=== PATIENT | female | born 1930 | race Caucasian/White ===

== ENCOUNTER 2016-08-23 15:23 | Inpatient (IN) | payer OTHER, MEDICARE, BC ==
[~2016-08-23] VITALS: Ht 162.6 cm; Wt 68.2 kg
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
--- NOTE | ~2016-08-23 | DS ---
PATIENT'S NAME: RODOLFO LUCAS [facility] AGE: 86 Y [address] ROOM: [address] [place] [address] LOCATION: GICU ADMIT DATE: 08/23/2016 Discharge Summary DISCHARGE DATE: 08/26/2016 FAMILY PHYSICIAN: Cesario East MD ATTENDING PHYSICIAN: Timi Domingo SUMMARY ADDENDUM: HOSPITAL COURSE: The patient was managed of her increasing intracranial pressures as well as at the time of presentation with hypovolemic hemorrhagic shock, was fluid resuscitated and eventually weaned off her Levophed. Over the course of her stay, the patient was found to be increasingly with loss of few of her brainstem reflexes with no cortical response. Family decided to proceed with making the patient more comfort care on 08/26/2016. After a long discussion with Neurosurgery as well as family, it was decided given the patient's grim prognosis and her comorbidities and that the patient's previous wishes would not to be chronically ventilated or with chronic severe disability, it was decided to make the patient comfort care. The patient did pass away following withdrawal of her ventilator and endotracheal tube as well as her medications. The patient's time of was 1402 hours on 08/26/2016. MD LUIS ANTONIO CASEY/jori /[id number] d: 09/25/162052 t: 10/18/16 1414, DISCHARGE SUMMARY
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
--- NOTE | ~2016-08-23 | OR ---
PATIENT'S NAME: RODOLFO LUCAS [facility] AGE: 86 Y [address] ROOM: [address] [place], [place] [address] LOCATION: GICU ADMIT DATE: 08/23/2016 OR/Procedure Report DISCHARGE DATE: FAMILY PHYSICIAN: DANILO SALAZAR MD ATTENDING PHYSICIAN: Edy Ellis SURGEON: Ximena Love MD COVERING MACHINE OPERATOR: DATE OF PROCEDURE: 08/23/2016 PREOPERATIVE DIAGNOSIS: Uwazc-ae-plxhokq subdural hematoma in the left hemisphere with significant fhoe-gh-iikxg shift. POSTOPERATIVE DIAGNOSIS: Mwhds-te-epmnabv subdural hematoma in the left hemisphere with significant ioqt-rg-iiszh shift. OPERATION PROPOSED AND PERFORMED: 1. Left frontotemporoparietal decompressive craniectomy. 2. Evacuation of acute subdural hematoma in the left frontotemporoparietal region. 3. Duraplasty. 4. Insertion of ICP monitor Right Frontal. 5. Suturing of the right parietal scalp laceration. DESCRIPTION OF PROCEDURE: Under general anesthesia, the patient was positioned supine, the head tilted to the right, the left frontotemporal- parietooccipital region was shaved, prepped, and draped in the usual fashion. Next, a large question magdalena incision was carried out extending from the frontal region all the way to the temporal area. The temporalis muscle and fascia as well as the pericranium were reflected as a unit with the scalp. Next, multiple jakub holes were then carried out in the frontotemporoparietal regions and a free frontotemporoparietal bone flap was fashioned out. The dura was stuck to the bone and consequently we had dural laceration in taking out the bone flap. Next, we incised the dura, and there was a large amount of acute subdural hematoma covering this entire area. In addition, there was some xanthochromic fluid indicating that it had some chronic subdural in addition to the acute subdural hematoma, but the major component was the acute subdural hematoma. We were able to get completely evacuate the subdural hematoma, extend it all the way to the floor of the anterior middle cranial fossa, and while doing the craniotomy, there was quite a copious bleeding along the midline, I think this was from the bone as well as from possibly 1 of the traversing veins we were able to stop the bleeding by applying pressure and Surgicel. Next, after evacuating the subdural hematoma, the brain was significantly decompressed; and next, we elected to go ahead and carry out a duraplasty. A few stay sutures were used to tack the dura to the undersurface of the bone primarily because we started having epidural bleeding after the PATIENT'S NAME: RODOLFO LUCAS [facility] AGE: 86 Y [address] ROOM: [address] [address] LOCATION: [facility] ADMIT DATE: 08/23/2016 OR/Procedure Report DISCHARGE DATE: FAMILY PHYSICIAN: DANILO SALAZAR MD ATTENDING PHYSICIAN: Edy Ellis decompression had been carried out. When hemostasis was completely achieved and there was no further hemorrhage seen, we therefore went ahead and closed the scalp in a single layer using mattress sutures. We did not close the temporalis muscle and fascia. Once this was completed, we completely removed the draping and directed our attention to the right frontal region in order to put in an ICP monitor. The initial intention was to put in a ventricular catheter; so, consequently a linear incision was carried out just anterior to the coronal suture and a twist drill hole was carried out at this site. The dura was incised in a cruciate manner after cauterizing it; and first of all, we tried using a bolt and using the bolt we could not convincingly get the catheter into the lateral ventricle. We then made another attempt using the Codman ventricular catheter and this attempt also was futile in accurately locating the lateral ventricle. So, eventually, we elected to just go ahead and put in a fiberoptic ICP monitor and the intracranial pressure was reading between 11 and 12. The area of the decompressive craniectomy was concave. After we had inserted the ICP sensor, which we brought out through a separate stab wound, the right frontal incision was closed in a single layer using 3-0 Nurolon. The patient was subsequently taken to the Intensive Care Unit continuing the ventilation. MD LEAH MARKHAM/jori /[id number] d: 08/24/16 0144 t: 08/28/16 1627, OPERATIVE SUMMARY
--- NOTE | ~2016-08-23 | OR ---
PATIENT'S NAME: RODOLFO LUCAS [facility] AGE: 86 Y [address] ROOM: [place] [address] LOCATION: [facility] ADMIT DATE: 08/23/2016 OR/Procedure Report DISCHARGE DATE: FAMILY PHYSICIAN: DANILO SALAZAR MD ATTENDING PHYSICIAN: Edy Ellis SURGEON: Ximena Love MD FARM INSTRUCTOR: DATE OF PROCEDURE: 08/23/2016 PREOPERATIVE DIAGNOSIS: Right parietal laceration. POSTOPERATIVE DIAGNOSIS: Right parietal laceration. OPERATION PROPOSED AND PERFORMED: Suturing of the right parietal laceration. DESCRIPTION OF PROCEDURE: The patient's right parietal region was cleaned, was prepped, and we went ahead after cleaning the area to initially tried using renetta, but this was not good enough; so, we subsequently changed that to using 3-0 Nurolon. The laceration was about 1 inch long. This was carried out uneventfully. MD LEAH MARKHAM/modl /[id number] d: 08/24/16 0149 t: 08/28/16 1629, OPERATIVE SUMMARY
--- NOTE | ~2016-08-23 | OR ---
PATIENT'S NAME: RODOLFO LUCAS [facility] AGE: 86 Y [address] ROOM: [place] [address] LOCATION: GICU ADMIT DATE: 08/23/2016 OR/Procedure Report DISCHARGE DATE: FAMILY PHYSICIAN: DANILO SALAZAR MD ATTENDING PHYSICIAN: Edy Ellis SURGEON: Brian Urbina MD ROVER TENDER: Joaquim Capellan RN. DATE OF PROCEDURE: 08/23/2016 PROCEDURE: Right internal jugular 8.5 Pakistani quad lumen central line placement. INDICATION FOR PROCEDURE: Need for central venous access secondary to administration of fluid, blood products, central venous pressure monitoring, and definitive central venous access. PREOPERATIVE DIAGNOSES: 1. Traumatic brain injury. 2. Polytrauma. 3. History of chronic obstructive pulmonary disease on home O2 use. 4. Chronic prednisone use. POSTOPERATIVE DIAGNOSES: 1. Traumatic brain injury. 2. Polytrauma. 3. History of chronic obstructive pulmonary disease on home O2 use. 4. Chronic prednisone use. COMPLICATIONS: None noted. ESTIMATED BLOOD LOSS: Less than 5 mL. CONSENT: I proceeded under presumed consent with the urgent nature of the patient's need for left craniotomy with evacuation of subdural hematoma. DESCRIPTION OF PROCEDURE: Following the left craniectomy with evacuation of subdural hematoma, the patient placed in supine position. Right neck was prepped with both alcohol and ChloraPrep. Utilizing sterile technique, a full body drape, sterile gown, sterile gloves were used. Surgical mask and cap were worn at all times. Utilizing sterile real-time ultrasound guidance, a 16- gauge needle was used to cannulate the right internal jugular vein in a middle approach on the first attempt without difficulty. Nonpulsatile blood flow. Dark blood aspirated over wire. An 8.6 Pakistani quad lumen was placed to 16 cm without difficulty. Wire and needle were removed intact. Catheter sutured in place. Sterile occlusive Tegaderm dressing applied. Good central venous PATIENT'S NAME: RODOLFO LUCAS [facility] AGE: 86 Y [address] ROOM: [place] [address] LOCATION: GICU ADMIT DATE: 08/23/2016 OR/Procedure Report DISCHARGE DATE: FAMILY PHYSICIAN: DANILO SALAZAR MD ATTENDING PHYSICIAN: Edy Ellis pressure monitoring waveform noted. Stat portable chest x-ray will be ordered postoperatively. MD BRUCE FR[place]/wisaml /[id number] d: 08/24/16 0152 t: 08/27/16 1320, OPERATIVE SUMMARY
--- NOTE | ~2016-08-23 | OR ---
PATIENT'S NAME: RODOLFO LUCAS [facility] AGE: 86 Y [address] ROOM: [place] [id number] LOCATION: [facility] ADMIT DATE: 08/23/2016 OR/Procedure Report DISCHARGE DATE: FAMILY PHYSICIAN: DANILO SALAZAR MD ATTENDING PHYSICIAN: Edy Ellis SURGEON: Philip Urbina MD [employer] CONSULTANT: Joaquim Capellan RN. DATE OF PROCEDURE: 08/23/2016 PROCEDURE: Emergent endotracheal intubation. INDICATIONS FOR PROCEDURE: Acute respiratory failure secondary to neurologic injury with bag-mask ventilation following the patient's injury. PRE PROCEDURE DIAGNOSES: 1. Polytrauma. 2. Acute respiratory failure. POSTOPERATIVE DIAGNOSES: 1. Polytrauma. 2. Acute respiratory failure. COMPLICATIONS: None noted. CONSENT: Proceeded under presumed consent given the urgent nature of the patient's condition. DETAILS OF THE PROCEDURE: The patient in the ER [facility] [place]. Bag-mask ventilation with 100% FiO2. The patient was somewhat difficult to mask ventilate. Bloody secretions through the patient's mouth noted. Oxygen saturations were at times obtainable of 100%. The patient was not moving or responsive at the time of my evaluation. 16 mg of etomidate was administered intravenously followed by of 80 mg of succinylcholine IV was administered. Utilizing Sellick maneuver throughout whole intubation and direct laryngoscopy with a Sanders 3 blade, the posterior oropharynx was suctioned aggressively with the Yankauer. A grade 1 Cormack-Lehane visualization was noted of the glottis. 7.5 oral endotracheal tube was placed without difficulty into the trachea at a depth of 22 cm at the lip. Balloon was inflated and bagged to oral endotracheal tube, was achieved with bilateral breath sounds and positive end- tidal CO2. At no point did I recognize any active regurgitation or passive aspiration except for the initial bloody secretions noted in the posterior oropharynx at the glottis that were aggressively suctioned. We had to aggressively suction the oral endotracheal tube because of bloody secretions. The patient's oxygen saturation were 100% post intubation. PATIENT'S NAME: RODOLFO LUCAS [facility] AGE: 86 Y [address] ROOM: [place] [address] LOCATION: [facility] ADMIT DATE: 08/23/2016 OR/Procedure Report DISCHARGE DATE: FAMILY PHYSICIAN: DANILO SALAZAR MD ATTENDING PHYSICIAN: dEy Ellis Of note, critical care time did not include the patient's emergency intubation. PHILIP URBINA MD RRS/modl /[id number] d: 08/24/16 0123 t: 08/27/16 1317, OPERATIVE SUMMARY
[~2016-08-23 15:23] MED LIST changes: -ATROVENT I0.5 MG/2.5 INH; -PROTONIX40 MG PO
[2016-08-23 15:44] LABS: BASOPHIL # 0.1 K/uL (0.0-0.2); BASOPHIL % 0.8 %; EOSINOPHIL # 0.3 K/uL (0.0-0.5); HEMATOCRIT 32.1 % (30.0-46.0); HEMOGLOBIN 10.4 g/dL (10.0-15.0); IMMATURE GRANULOCYTE # 0.1 K/uL (0.0-0.3); IMMATURE GRANULOCYTE % 0.7 %; LYMPHOCYTE # 3.2 K/uL (0.8-4.0); LYMPHOCYTE % 28.1 %; MCH 29.8 pg (27.0-34.0); MCHC 32.4 gm/dL (32.0-36.5); MONOCYTE # 0.6 K/uL (0.0-1.0); MONOCYTE % 5.4 %; MPV 9.2 fl (9.4-12.4); NRBC % 0 /100WBC (0-0.00); RBC 3.49 M/uL (3.00-5.00); RDW-CV 14.5 % (11.9-14.6); WBC 11.2 K/uL (4.0-11.0)
[2016-08-23 15:45] LABS: PLATELET COUNT 234 K/uL (150-450)
[2016-08-23 15:46] LABS: BILIRUBIN URINE NEGATIVE (NEGATIVE); BLOOD URINE 25 /UL (NEGATIVE); GLUCOSE URINE NEGATIVE (NEGATIVE); KETONE URINE NEGATIVE (NEGATIVE); LEUKOCYTES URINE NEGATIVE /UL (NEGATIVE); NITRITE URINE NEGATIVE (NEGATIVE); PROTEIN URINE 30 mg/dL (NEGATIVE); UROBILINOGEN URINE NORMAL (NORMAL)
[2016-08-23 15:52] LABS: PCO2 54 mmHg (35-45)
[2016-08-23 15:53] LABS: PO2 25 mmHg (80-90); POTASSIUM 4.5 mEq/L (3.7-5.1); PROTIME 10.2 SECONDS (9.6-11.1); SODIUM 140 mEq/L (135-145)
[2016-08-23 15:56] LABS: PTT 25 SECONDS (25-32)
[2016-08-23 16:00] LABS: ANION GAP 10.5 (10.0-19.0); BLOOD UREA NITROGEN 14 mg/dL (6-24); CHLORIDE 106 mMol/L (96-110); ESTIMATED GFR (MDRD EQUATION) 52
[2016-08-23 16:15] LABS: COLOR URINE YELLOW (YELLOW); TURBIDITY URINE CLEAR (CLEAR)
[2016-08-23 16:16] LABS: RBC URINE 0-2 #/HPF (NEGATIVE)
[2016-08-23 16:17] LABS: BACTERIA URINE NEGATIVE (NEGATIVE); EPITHELIAL URINE 0-2 #/HPF (NEGATIVE); WBC URINE 0-2 #/HPF (NEGATIVE)
[2016-08-23 18:34] LABS: BASOPHIL % 0.2 %; EOSINOPHIL # 0.1 K/uL (0.0-0.5); EOSINOPHIL % 0.8 %; HEMOGLOBIN 8.3 g/dL (10.0-15.0); IMMATURE GRANULOCYTE # 0.1 K/uL (0.0-0.3); IMMATURE GRANULOCYTE % 0.9 %; LYMPHOCYTE # 1.4 K/uL (0.8-4.0); LYMPHOCYTE % 11.6 %; MCH 30.9 pg (27.0-34.0); MCV 91.4 fl (83.0-98.0); MONOCYTE # 0.7 K/uL (0.0-1.0); MONOCYTE % 6.1 %; MPV 8.7 fl (9.4-12.4); NEUTROPHIL # (ANC) 9.7 K/uL (1.8-7.8); NEUTROPHIL % 80.4 %; NRBC % 0 /100WBC (0-0.00); RBC 2.69 M/uL (3.00-5.00)
[2016-08-23 18:35] LABS: HEMATOCRIT 24.6 % (30.0-46.0); MCHC 33.7 gm/dL (32.0-36.5); PLATELET COUNT 132 K/uL (150-450)
[2016-08-23 18:45] LABS: INR - (THERAPEUTIC) 1.2 (0.9-1.1); PROTIME 12.9 SECONDS (9.6-11.1); PTT 35 SECONDS (25-32)
[2016-08-23 20:30] LABS: BICARBONATE 22.6 mmol/L (18.0-23.0); PCO2 41 mmHg (35-45); PO2 407 mmHg (80-90)
[2016-08-23 20:31] LABS: SODIUM 136 mEq/L (135-145)
[2016-08-23 20:31] LABS: BICARBONATE 21.1 mmol/L (18.0-23.0); PCO2 46 mmHg (35-45); PO2 407 mmHg (80-90); SODIUM 140 mEq/L (135-145)
[2016-08-23 20:58] LABS: PCO2 44 mmHg (35-45)
[2016-08-23 20:58] LABS: HEMATOCRIT 30.7 % (30.0-46.0); HEMOGLOBIN 10.8 g/dL (10.0-15.0); MCH 31.7 pg (27.0-34.0); MCHC 35.2 gm/dL (32.0-36.5); MPV 8.7 fl (9.4-12.4); PLATELET COUNT 99 K/uL (150-450); RBC 3.41 M/uL (3.00-5.00); WBC 8.3 K/uL (4.0-11.0)
[2016-08-23 20:59] LABS: PO2 206 mmHg (80-90)
[2016-08-23 21:11] LABS: ANION GAP 15.9 (10.0-19.0); CALCIUM 8.1 mg/dL (8.5-10.5); POTASSIUM 3.9 mMol/L (3.7-5.1)
[2016-08-23 21:15] LABS: PROTIME 10.5 SECONDS (9.6-11.1)
[2016-08-23 21:19] LABS: PTT 25 SECONDS (25-32)
[2016-08-23 21:27] LABS: ABSOLUTE NEUTROPHIL CT (ANC) 6.7 K/uL (1.8-7.8); BANDED NEUTROPHIL # 0.2 K/uL (0.0-0.1); BANDED NEUTROPHILS % 2 %; LYMPHOCYTE # 0.7 K/uL (0.8-4.0); LYMPHOCYTE % 8 %; MONOCYTE # 0.9 K/uL (0.0-1.0); SEGMENTED NEUTROPHIL # 6.6 K/uL (1.8-7.8); SEGMENTED NEUTROPHIL % 79 %
[2016-08-24 04:00] LABS: BICARBONATE 25.1 mmol/L (18.0-23.0); LACTATE 2.5 mEq/L (0.50-1.60); PCO2 37 mmHg (35-45)
[2016-08-24 04:01] LABS: PO2 83 mmHg (80-90)
[2016-08-24 04:22] LABS: ALBUMIN 3.2 gm/dL (3.5-5.0); CALCIUM 7.9 mg/dL (8.5-10.5); CREATININE 1.1 mg/dL (0.5-1.1); POTASSIUM 3.4 mMol/L (3.7-5.1); TOTAL PROTEIN 5.6 g/dL (6.0-8.4)
[2016-08-24 04:35] LABS: ANION GAP 15.4 (10.0-19.0); TOTAL BILIRUBIN 2.3 mg/dL (0.0-1.5)
[2016-08-24 05:13] LABS: HEMATOCRIT 29.1 % (30.0-46.0); HEMOGLOBIN 10.4 g/dL (10.0-15.0); MCH 30.7 pg (27.0-34.0); MCHC 35.7 gm/dL (32.0-36.5); MCV 85.8 fl (83.0-98.0); MPV 9.2 fl (9.4-12.4); PLATELET COUNT 96 K/uL (150-450); RBC 3.39 M/uL (3.00-5.00); RDW-CV 13.6 % (11.9-14.6); WBC 6.7 K/uL (4.0-11.0)
[2016-08-24 05:15] LABS: PROTIME 9.9 SECONDS (9.6-11.1)
[2016-08-24 06:05] LABS: BANDED NEUTROPHIL # 2.2 K/uL (0.0-0.1); BANDED NEUTROPHILS % 33 %; LYMPHOCYTE # 1.1 K/uL (0.8-4.0); LYMPHOCYTE % 17 %; MONOCYTE # 0.6 K/uL (0.0-1.0); SEGMENTED NEUTROPHIL # 2.8 K/uL (1.8-7.8); SEGMENTED NEUTROPHIL % 41 %
--- NOTE | 2016-08-24 06:45 | NUR ---
Significant Event: Patient sedated on propofol. Pupils equal and reactive. Shrugs shoulders with noxious stimulation to UEs. LEs decorticate posturing with noxious stimulation. ICP 10-12. SR, ST, BP labile, labetolol given x2 to keep CPP 60-80. SIMV, 30%fio2. Lung sounds clear and clear and diminished in the lowers. Bowel sounds active/hypoactive, OG to lis, no bm this shift. Stoner intact, adquate UOP. Skin abnormalities noted, R)eye continues to ooze bloody drainage. R)IJ, R)arterial line intact. Propofol and NS with 20KCL infusing. Follow up: Continue.
[2016-08-24] MEDS ORDERED: PROTONIX40 MG PO (09:21)
[2016-08-24] MEDS ORDERED: ATROVENT I0.5 MG/2.5 INH (09:22)
--- NOTE | 2016-08-24 13:00 | NUR ---
Introduced self and role of care management to patient's daughter and son. Patient lives in [place] with her spouse. Support offered. Will follow.
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
[2016-08-24 16:33] LABS: BICARBONATE 24.8 mmol/L (18.0-23.0); PCO2 42 mmHg (35-45); PO2 86 mmHg (80-90)
[2016-08-24 16:50] LABS: ALBUMIN 3.1 gm/dL (3.5-5.0); CALCIUM 8.1 mg/dL (8.5-10.5); PHOSPHORUS 2.6 mg/dL (2.5-4.9); POTASSIUM 3.5 mMol/L (3.7-5.1)
[2016-08-24 16:51] LABS: ANION GAP 15.5 (10.0-19.0)
--- NOTE | 2016-08-24 17:04 | NUR ---
No changes to vent settings t/o shift, continued on 30% Fio2, Peep 5, PS 10 in SIMV mode. Lung sounds clear/diminished, sxn scant-small occ blood-tinged/white. Started Atrovent Q6H this afternoon. Will continue to monitor
--- NOTE | 2016-08-24 19:09 | NUR ---
Significant Event: Patient is on a fentanyl gtt at 50mcg/hr per physician order. PERRLA at 4mmg bilaterally/brisk. Extension observed with bilateral upper extremities, does withdraw to lower extremities. Does have a gag, does have a cough and overbreathes set rate on ventilator. High temp of 100.6, cooling blanket was placed and has came down to normothermia range throughout the day. CPP was matained with the help of medication. Currently most recently being treated on levophed gtt at 0.1mcg/kg/min. Potassium was low throughout the shift, replaced with 40meq KCL this AM, and 40mmol of Kphos this afternoon. [employer] fit patient with special aspen collar after having to manipulate it several times and shred it down to fit her neck. Currently aspen collar is on. ICP monitor has showed a reading of <15 all day. MARSHAL drain under scalp on L) side has drained 40ml of fluid. Stoner draining mariginal UOP the last 2 hours of 30ml/hr. Total fluid order of 100ml/hr. Follow up:
[2016-08-25 04:44] LABS: BICARBONATE 23.2 mmol/L (18.0-23.0); PCO2 43 mmHg (35-45); PO2 81 mmHg (80-90)
--- NOTE | 2016-08-25 04:47 | NUR ---
No changes made to vent settings this shift. FiO2 currently at 30% for O2 sats of 98-99%. ETCO2 was 37-42 throughout the shift. Breathsounds slightly coarse throughout bilaterally. Suctioning scant to small amounts of blood tinged secretions. Will continue to monitor patient.
[2016-08-25 05:09] LABS: CALCIUM 7.8 mg/dL (8.5-10.5); CREATININE 1.1 mg/dL (0.5-1.1); POTASSIUM 4.2 mMol/L (3.7-5.1); TOTAL PROTEIN 5.7 g/dL (6.0-8.4)
[2016-08-25 05:13] LABS: BASOPHIL % 0.1 %; HEMATOCRIT 28.8 % (30.0-46.0); HEMOGLOBIN 9.9 g/dL (10.0-15.0); IMMATURE GRANULOCYTE # 0.1 K/uL (0.0-0.3); IMMATURE GRANULOCYTE % 0.9 %; LYMPHOCYTE # 1.1 K/uL (0.8-4.0); LYMPHOCYTE % 9.1 %; MCHC 34.4 gm/dL (32.0-36.5); MONOCYTE # 1.1 K/uL (0.0-1.0); MONOCYTE % 9.6 %; NEUTROPHIL # (ANC) 9.6 K/uL (1.8-7.8); NEUTROPHIL % 80.3 %; NRBC % 0 /100WBC (0-0.00); PLATELET COUNT 86 K/uL (150-450); RBC 3.19 M/uL (3.00-5.00); WBC 11.9 K/uL (4.0-11.0)
[2016-08-25 05:17] LABS: MCV 90.3 fl (83.0-98.0)
[2016-08-25 05:18] LABS: INR - (THERAPEUTIC) 0.9 (0.9-1.1); PROTIME 9.4 SECONDS (9.6-11.1)
[2016-08-25 05:21] LABS: ANION GAP 15.2 (10.0-19.0); TOTAL BILIRUBIN 0.6 mg/dL (0.0-1.5)
--- NOTE | 2016-08-25 05:44 | NUR ---
Significant Event: CONTINUES WITHOUT SEDATION, FENTANYL GTT AT 50MCG/HR. ICP MONITOR TO RIGHT FRONTAL. LEFT BONE FLAP. ICP'S 8-11 THROUGHOUT SHIFT. WITHDRAW IN LOWER EXTREMITIES TO NAIL BED PRESSURE. SLIGHT WITHDRAW NOTED TO UPPER EXTREMETIES WITH DEEP NAIL BED PRESSURE. SPONTANEOUS AND INDUCED COUGH. WEANED FROM LEVOPHED GTT TO KEEP CPP 60-80. CONTINUES ON COOLING BLANKET. TEMP MAX 99.7. HICKS WITH MARGINAL OUTPUT. OGT WITH TF, INCREASING TO GOAL 50ML/HR, CURRENTLY AT 40ML/HR. PIV X2,SL. RIGHT IJ QUAD LUMEN, CVP. RIGHT RADIAL ARTLINE. Follow up:
[2016-08-25 16:48] LABS: BLOOD UREA NITROGEN 20 mg/dL (6-24); CALCIUM 7.9 mg/dL (8.5-10.5); CO2 23 mMol/L (22-32); CREATININE 0.8 mg/dL (0.5-1.1)
[2016-08-25 16:49] LABS: POTASSIUM 4.4 mMol/L (3.7-5.1); SODIUM 155 mMol/L (135-145)
[2016-08-25 16:50] LABS: ANION GAP 14.4 (10.0-19.0); CHLORIDE 122 mMol/L (96-110); ESTIMATED GFR (MDRD EQUATION) > 60
--- NOTE | 2016-08-25 17:05 | NUR ---
PT VENTED ON 30% SATS 98-100%, BREATH SOUNDS COARSE THROUGHOUT, SXN A MODERATE AMOUNT OF WHITE AND RODRIGUES SPUTUM, ETCO2 36-40, PT CONTINUED TO STACK BREATHS ON VENT, WAS CALLED AND WE PLACED PT IN CPAP 10/03 AROUND 1630, PT SEEMS TO TOLERATE THAT WELL AND LOOKS MORE COMFORTABLE, WILL CONTINUE TO MONITOR UNTIL FURTHER NOTICE
--- NOTE | 2016-08-25 17:21 | NUR ---
PT HAS SPONT COUGH/GAG PRESENT, ABDN FLEX TO BLE AND ABDN EXT TO BUE. NO COREAL REFLEX, PERRL 2B, CURRENTLY IN CPAP TV 800'S AT TIMES, RR TEEN'S-20'S. LS SLC AND CLEAR WITH SUCTIONING RODRIGUES VIA ETT AND ORALLY. SATS UPPER 90'S, ST 120'S THIS AFTERNOON, LABS STABLE, CVP 8-15, CPP'S 90-100'S THIS AFTERNOON, T-MAX 99.9 WITH COOLING BLANKET PLACED NOW DOWN TO 97'S. FENT GTT DC'D WITH OXY STARTED PER OGT, TF WITH NO RESIDUALS, HICKS WITH MARGINAL UOP. FAMILY DISCUSSED POC IN LENGTH, POSSIBLE W/DRAW TOMORROW. J/P DRAIN WITH 120MLS FOR SHIFT.
[2016-08-26 04:58] LABS: BICARBONATE 26.5 mmol/L (18.0-23.0); LACTATE 2.1 mEq/L (0.50-1.60)
[2016-08-26 04:59] LABS: PCO2 34 mmHg (35-45); PO2 102 mmHg (80-90)
[2016-08-26 05:16] LABS: MAGNESIUM 1.8 mg/dL (1.3-2.6); PHOSPHORUS 1.3 mg/dL (2.5-4.9)
[2016-08-26 05:17] LABS: BASOPHIL % 0.2 %; HEMATOCRIT 25.1 % (30.0-46.0); HEMOGLOBIN 8.6 g/dL (10.0-15.0); IMMATURE GRANULOCYTE # 0.1 K/uL (0.0-0.3); IMMATURE GRANULOCYTE % 0.7 %; LYMPHOCYTE # 1.3 K/uL (0.8-4.0); MCH 31.4 pg (27.0-34.0); MCHC 34.3 gm/dL (32.0-36.5); MCV 91.6 fl (83.0-98.0); MONOCYTE % 8.7 %; MPV 10.6 fl (9.4-12.4); NEUTROPHIL % 79.4 %; NRBC % 0.2 /100WBC (0-0.00); PLATELET COUNT 82 K/uL (150-450); RBC 2.74 M/uL (3.00-5.00); RDW-CV 15.4 % (11.9-14.6); WBC 11.3 K/uL (4.0-11.0)
--- NOTE | 2016-08-26 07:06 | NUR ---
Significant Event: No significant changes. Pt continues to have abnormal flexion and extension x 4 extremities. Very rigid. Does not open eyes. No corneal reflex. PERRL. Sinus tachycardia. Htn at times. Labetalol given x1. Febrile at times. COoling blanket on/off. Tube feeds via OG, no residuals. Adequate uop. R)IJ intact. R)arterial line. Follow up: Continue cares.
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
== END 2016-08-26 14:02 | disposition expired | DRG 955 ==
LOC: GACC 15:23 → GICU 16:09 → GNTU 16:09 → GICU 17:54
PROVIDERS: Anesthesiology; Anesthesiology Critical Care Medicine; Family Medicine; Neurological Surgery; ADMIT Surgery
PROC: 02HV33Z Insertion of Infusion Device into Superior Vena Cava, Percutaneous Approach (ICD-10-PCS; principal; 2016-08-23)
PROC: 0WQ0XZZ Repair Head, External Approach (ICD-10-PCS; principal; 2016-08-23)
PROC: 00N00ZZ Release Brain, Open Approach (ICD-10-PCS; principal; 2016-08-23)
PROC: 03HB33Z Insertion of Infusion Device into Right Radial Artery, Percutaneous Approach (ICD-10-PCS; principal; 2016-08-23)
PROC: 00940ZZ Drainage of Intracranial Subdural Space, Open Approach (ICD-10-PCS; principal; 2016-08-23)
PROC: 00Q20ZZ Repair Dura Mater, Open Approach (ICD-10-PCS; principal; 2016-08-23)
PROC: 4A103BD Monitoring of Intracranial Pressure, Percutaneous Approach (ICD-10-PCS; principal; 2016-08-23)
PROC: 5A1945Z Respiratory Ventilation, 24-96 Consecutive Hours (ICD-10-PCS; 2016-08-23)
PROC: 0BH17EZ Insertion of Endotracheal Airway into Trachea, Via Natural or Artificial Opening (ICD-10-PCS; 2016-08-23)
PROC: 30233M1 Transfusion of Nonautologous Plasma Cryoprecipitate into Peripheral Vein, Percutaneous Approach (ICD-10-PCS; 2016-08-23)
PROC: 30233K1 Transfusion of Nonautologous Frozen Plasma into Peripheral Vein, Percutaneous Approach (ICD-10-PCS; 2016-08-23)
PROC: 30233N1 Transfusion of Nonautologous Red Blood Cells into Peripheral Vein, Percutaneous Approach (ICD-10-PCS; 2016-08-23)
PROC: 30233R1 Transfusion of Nonautologous Platelets into Peripheral Vein, Percutaneous Approach (ICD-10-PCS; 2016-08-23)
DX: S32.501A Unspecified fracture of right pubis, initial encounter for closed fracture; J96.00 Acute respiratory failure, unspecified whether with hypoxia or hypercapnia; G93.6 Cerebral edema; T79.4XXA Traumatic shock, initial encounter; D68.9 Coagulation defect, unspecified; E87.2 Acidosis; D62 Acute posthemorrhagic anemia; Z51.5 Encounter for palliative care; S02.40EA Zygomatic fracture, right side, initial encounter for closed fracture; Z99.81 Dependence on supplemental oxygen; S02.81XA Fracture of other specified skull and facial bones, right side, initial encounter for closed fracture; S05.11XA Contusion of eyeball and orbital tissues, right eye, initial encounter; V03.00XA Pedestrian on foot injured in collision with car, pick-up truck or van in nontraffic accident, initial encounter; J44.9 Chronic obstructive pulmonary disease, unspecified; I10 Essential (primary) hypertension; Z79.52 Long term (current) use of systemic steroids; Z87.891 Personal history of nicotine dependence; M43.16 Spondylolisthesis, lumbar region; M51.37 Other intervertebral disc degeneration, lumbosacral region; Z87.81 Personal history of (healed) traumatic fracture; S01.01XA Laceration without foreign body of scalp, initial encounter; H11.31 Conjunctival hemorrhage, right eye; D69.59 Other secondary thrombocytopenia; G93.2 Benign intracranial hypertension; R73.9 Hyperglycemia, unspecified
CPT/HCPCS: G0390; G0480; J0330; J1165; J1720; J2060; J2250; J2270; J2370; J2405; J2704; J2765; J2920; J3010; J3480; J7040; J7050; J7060; P9012; P9016; P9017; P9035; Q9967

== ENCOUNTER → 2016-08-23 | Outpatient (CLI) | payer OTHER, MEDICARE, BC ==
[~2016-08-23] MED LIST: ADVAIR 250-501 EACH INH; ATROVENT I0.5 MG/2.5 INH; DELTASONE1 MG PO; DELTASONE20 MG PO; HUMIBID LA (MU600 MG PO; HYDRODIURIL25 MG PO; ICAPS TABLET1 EACH PO; K-TAB 10MEQ10 MEQ PO; OXYGEN M-15 INH; PENTASA500 MG PO; PROTONIX20 MG PO; PROTONIX40 MG PO; ROBITUSSIN100 MG/5 M PO; TAMIFLU75 MG PO; THERA-VITE W/ B1 TAB PO; TYLENOL325 MG PO; ZITHROMAX250 MG PO; ZOCOR20 MG PO
== END | disposition disaster alternative care site (69) ==
LOC: GAMB 15:02
DX: R40.20 Unspecified coma (principal); Z79.899 Other long term (current) drug therapy; V03.99XA Pedestrian with other conveyance injured in collision with car, pick-up truck or van, unspecified whether traffic or nontraffic accident, initial encounter
CPT/HCPCS: A0422; A0425; A0427